=== PATIENT | female | born 1970 | race Caucasian/White ===

== ENCOUNTER 2018-07-19 14:19 | Emergency (ER) | payer MEDICAID ==
[~2018-07-19] VITALS: Ht 165.1 cm; Wt 74.8 kg
[~2018-07-19 14:19] MED LIST: DIPH25CA39 PO; METH4PAK PO; PIME1CRE EX; [UNRECOGNIZED DRUG - CODE] EX
[2018-07-19 15:23] LABS: Urine Bacteria FEW /hpf (None Seen); Urine Blood Negative /uL (Negative); Urine Specific Gravity 1.001 (1.001-1.035); Urine WBC <1 /hpf (0 - 5)
[2018-07-19 15:30] VITALS: BP 102/80
[2018-07-19 15:33] LABS: Basophils # (auto) 0.1 uL; Basophils % (auto) 1.4 % (0.0-2.0); Eosinophils # (auto) 0.4 uL; Hematocrit 39.8 % (36.0-46.0); Hemoglobin 13.2 g/dL (12.2-16.2); Lymphocytes # (auto) 1.7 uL; Lymphocytes % (auto) 19.1 % (10.0-50.0); Mean Corpuscular Hemoglobin 29.1 pg (28.0-32.0); Mean Corpuscular Hgb Conc. 33.2 g/dL (32.0-36.0); Mean Corpuscular Volume 87.7 fL (80.0-100.0); Monocytes # (auto) 0.9 uL; Monocytes % (auto) 10.1 % (0.0-12.0); Neutrophils # (auto) 5.8 uL; Neutrophils % (auto) 65.4 % (37.0-80.0); Platelet Count (auto) 369 10^3/uL (140-450); Red Blood Cells 4.54 10^6/uL (4.0-5.20); Red Cell Distribution Width 14.3 % (11.8-14.3); White Blood Cell 8.8 10^3/uL (4.4-10.8)
[2018-07-19 15:52] LABS: Albumin 3.2 g/dL (3.4-5.0); Calcium 8.3 mg/dL (8.5-10.1)
[2018-07-19 15:55] LABS: BUN/Creatinine Ratio 16.4; Bilirubin, Total 0.5 mg/dL (0.2-1.0)
[2018-07-19] MEDS ORDERED: IBUPROFEN 800 MG TAB PO ONE (16:45)
[2018-07-19] MEDS ORDERED: PANTOPRAZOLE 40 MG TAB PO ONE (17:30)
== END 2018-07-19 17:44 | disposition home or self-care (01) ==
LOC: EDBD 14:19 → ER 14:19
DX: F41.9 Anxiety disorder, unspecified (principal); R51 Headache; E78.5 Hyperlipidemia, unspecified; Z88.8 Allergy status to other drugs, medicaments and biological substances
CPT/HCPCS: 36415; 70450; 80053; 81001; 85025

== ENCOUNTER 2018-08-02 08:22 | Emergency (ER) | payer MEDICAID ==
[~2018-08-02] VITALS: Ht 152.4 cm; Wt 68.9 kg
[2018-08-02 08:45] LABS: Basophils # (auto) 0.1 uL; Eosinophils # (auto) 0.2 uL; Lymphocytes # (auto) 1.5 uL; Lymphocytes % (auto) 21.1 % (10.0-50.0)
[2018-08-02 08:47] LABS: Basophils % (auto) 1.3 % (0.0-2.0); Hematocrit 40.1 % (36.0-46.0); Hemoglobin 13.3 g/dL (12.2-16.2); Mean Corpuscular Hemoglobin 29.4 pg (28.0-32.0); Mean Corpuscular Hgb Conc. 33.2 g/dL (32.0-36.0); Mean Corpuscular Volume 88.6 fL (80.0-100.0); Monocytes # (auto) 0.7 uL; Monocytes % (auto) 10.3 % (0.0-12.0); Neutrophils # (auto) 4.5 uL; Neutrophils % (auto) 64.3 % (37.0-80.0); Nucleated Red Blood Cells % 0.1 %; Platelet Count (auto) 465 10^3/uL (140-450); Red Blood Cells 4.52 10^6/uL (4.0-5.20); Red Cell Distribution Width 14.5 % (11.8-14.3); White Blood Cell 7.1 10^3/uL (4.4-10.8)
[2018-08-02 09:08] LABS: Alanine Aminotransferase 18 U/L (13-56); Albumin 3.6 g/dL (3.4-5.0); Anion Gap 7 (5-15); Aspartate Aminotransferase 16 U/L (15-37); Blood Urea Nitrogen 12 mg/dL (7-18); Calcium 8.9 mg/dL (8.5-10.1); Carbon Dioxide 26 mmol/L (21-32); Chloride 105 mmol/L (98-107); GFR African American 99 mL/min; GFR Non-African American 82 mL/min; Glucose 93 mg/dL (74-106); Potassium 4.5 mmol/L (3.5-5.1); Sodium 138 mmol/L (136-145)
[2018-08-02 09:13] LABS: Alkaline Phosphatase 82 U/L (45-117); Bilirubin, Total 0.5 mg/dL (0.2-1.0); Total Protein 7.8 g/dL (6.4-8.2)
[2018-08-02 09:29] LABS: Urine Bacteria FEW /hpf (None Seen); Urine Blood Negative /uL (Negative); Urine Specific Gravity 1.012 (1.001-1.035); Urine WBC 2 /hpf (0 - 5)
[2018-08-02 11:03] VITALS: BP 110/48
== END 2018-08-02 11:10 | disposition home or self-care (01) ==
LOC: ER 08:22
DX: R07.89 Other chest pain (principal); M79.604 Pain in right leg; E78.5 Hyperlipidemia, unspecified; Z88.8 Allergy status to other drugs, medicaments and biological substances
CPT/HCPCS: 36415; 80053; 81001; 81025; 84484; 85025; 93005; 93970

== ENCOUNTER 2018-08-24 16:16 | Inpatient (IN) | payer MEDICAID ==
[~2018-08-24] VITALS: Ht 152.4 cm; Wt 61.0 kg
--- NOTE | 2018-08-24 11:42 | NUR ---
PT MOVED PT MOVED CLOSER TO NURSING STATION TO ROOM 290A, [facility] CALLED TO REQUEST LOWER RATE TO ALARM FOR SINUS TACH TO 105. Addendum: 08/25/18 at 0005 by JOSE GUADALUPE WALKER RN RN TIME [id number].
[2018-08-24] MEDS ORDERED: SODIUM CHLORIDE 0.9% 1,000 ML IV ONE (18:10)
[2018-08-24] MEDS ORDERED: ASPirin 81 mg TAB PO ONE (18:15)
[2018-08-24] MEDS ORDERED: ENOXAPARIN SOD 60 MG/0.6 ML SYRINGE SC ONE ×2 (18:15)
[2018-08-24 18:32] LABS: Basophils # (auto) 0 uL; Basophils % (auto) 0.7 % (0.0-2.0); Eosinophils # (auto) 0.3 uL; Eosinophils % (auto) 4.3 % (0.0-7.0); Hematocrit 39.5 % (36.0-46.0); Hemoglobin 13.3 g/dL (12.2-16.2); Lymphocytes # (auto) 1.9 uL; Lymphocytes % (auto) 29.3 % (10.0-50.0); Mean Corpuscular Hemoglobin 29.6 pg (28.0-32.0); Mean Corpuscular Hgb Conc. 33.6 g/dL (32.0-36.0); Mean Corpuscular Volume 88.3 fL (80.0-100.0); Monocytes # (auto) 0.7 uL; Monocytes % (auto) 11.3 % (0.0-12.0); Neutrophils # (auto) 3.5 uL; Neutrophils % (auto) 54.4 % (37.0-80.0); Nucleated Red Blood Cells % 0.1 %; Platelet Count (auto) 384 10^3/uL (140-450); Red Blood Cells 4.48 10^6/uL (4.0-5.20); Red Cell Distribution Width 14.2 % (11.8-14.3); White Blood Cell 6.5 10^3/uL (4.4-10.8)
[2018-08-24 18:49] LABS: Albumin 4.2 g/dL (3.4-5.0); Magnesium 2.3 mg/dL (1.6-2.6); Potassium 4.1 mmol/L (3.5-5.1)
[2018-08-24 18:52] LABS: BUN/Creatinine Ratio 12.2; Bilirubin, Total 0.3 mg/dL (0.2-1.0); INR < 0.93 (0.9-1.15); Partial Thromboplastin Time 25.1 sec (23.64-32.05)
[2018-08-24] MEDS ORDERED: IOHEXOL 350 MG/ML 100ML IJ ONE (19:11)
[2018-08-24] MEDS ORDERED: NITROGLYCERIN 0.4 MG SL TAB SL PRN (19:15)
[2018-08-24] MEDS ORDERED: ZOLPIDEM TARTRATE 5 MG TAB PO PRN (19:15)
[2018-08-24] MEDS ORDERED: MORPHINE SULF INJ 2 MG/ML SYRINGE 1ML IV PRN ×2 (19:15)
[2018-08-24] MEDS ORDERED: ONDANSETRON HCL 4 MG/2 ML VIAL IV PRN (19:15)
[2018-08-24] MEDS ORDERED: ACETAMINOPHEN 500 MG TAB PO PRN (19:15)
[2018-08-24 22:00] VITALS: BP 123/78
--- NOTE | 2018-08-24 22:02 | NUR ---
OPENING NOTES RECEIVED PATIENT FROM ED WITH NO SBAR HANDOFF REPORT. PT IS AWAKE AND ORIENTATED X 4 WITH NO S/S OF DISTRESS NOR PAIN. NO S/S OF SOB NOTED. PT'S FAMILY IS AT BEDSIDE. PT CLAIMS "IM WORRIED WHAT HAPPENED DOWNSTAIR WILL HAPPEN TO ME AGAIN." PT WANT FAMILY TO STAY; INFORMED PT ABOUT HOSPITAL POLICY ON FAMILY MEMBERS STAYING. HOB IS 30 DEGREES. BED ALARM IS ON. ADVISED PATIENT TO CALL IF SHE WANT TO GET UP OUT OF BED AND VERBALIZED UNDERSTANDING. DISCUSSED POC WITH PATIENT AND PATIENT VERBALIZED UNDERSTANDING.
[2018-08-24 22:23] LABS: Urine WBC None Seen /hpf (0 - 5)
[2018-08-24 22:36] LABS: Urine Bacteria NONE SEEN /hpf (None Seen); Urine Blood Negative /uL (Negative)
[2018-08-25] MEDS: HYDROcodone-ACET 5/325MG TAB PO PRN (00:33)
[2018-08-25] MEDS ORDERED: ASPI81TA27 PO (01:20)
--- NOTE | 2018-08-25 01:33 | NUR ---
ROUND PT CLAIMS SHE "FEELS BETTER."
--- NOTE | 2018-08-25 01:59 | NUR ---
PT HAS NO DIET, WILL INFORM HOSPITALIST.
--- NOTE | 2018-08-25 04:44 | NUR ---
LEFT UPPER EXTREMITY PT'S LEFT UPPER EXTREMITY SLIGHT SWOLLEN AND WARM TO TOUCH.
--- NOTE | 2018-08-25 05:05 | NUR ---
DIET HOSPITALIST PAGED AGAIN FOR DIET. AWAITING CALL BACK.
[2018-08-25 05:38] VITALS: BP 124/65
--- NOTE | 2018-08-25 07:05 | NUR ---
HOSPITALIST CALLED BACK HOSPITALIST CALLED BACK AND ORDERED A REGULAR DIET.
--- NOTE | 2018-08-25 07:35 | NUR ---
OPENING SHIFT NOTE PATIENT IN BED AWAKE AND ALERT DENIES PAIN AND SOB SHOWING NO S/S OF DISTRESS AT THIS TIME. PATIENT VERBALIZED UNDERSTANDING OF DAYS POC. BED IS IN LOWEST LOCKED POSITION. CALL LIGHT IS WITH IN REACH. WILL CONTINUE TO MONITOR.
--- NOTE | 2018-08-25 07:35 | NUR ---
CLOSING NOTES ENDORSED CARE TO DAY SHIFT NURSELEI.
--- NOTE | 2018-08-25 08:26 | NUR ---
DOCTOR BERNICE SPOKE TO KAY AT DR KING OFFICE. WAITING CALL BACK
[2018-08-25 09:00] VITALS: BP 123/76
--- NOTE | 2018-08-25 09:51 | NUR ---
PAGED DR GOTTI PAGED. SPOKE TO ODILIA. AWAITING RESPONSE
[2018-08-25] MEDS ORDERED: ENOXAPARIN SOD 60 MG/0.6 ML SYRINGE SC SCH (10:00)
--- NOTE | 2018-08-25 10:15 | NUR ---
AT BEDSIDE DR AN AT BEDSIDE. ORDERED XERALTO TO BE GIVEN. WILL CARRY OUT ORDERS ACCORDINGLY
--- NOTE | 2018-08-25 10:30 | NUR ---
PAGED PAGED DR MELLO PER DR OSUNA REQUEST. SPOKE TO RAFIA. AWAITING RESPONSE
[2018-08-25] MEDS ORDERED: RIVAROXABAN 15 MG TAB PO ONE (12:00)
--- NOTE | 2018-08-25 12:27 | NUR ---
[facility] CALLED SAID LOVENOX AND XERALTO CANNOT BE TAKEN TOGETHER. [facility] WILL CONTINUE TO MONITOR.
[2018-08-25 13:00] VITALS: BP 144/74
--- NOTE | 2018-08-25 14:56 | NUR ---
BERNICE HARRIS SPOKE TO JENNY FROM DR KIGN OFFICE, SHE VERBALIZED IS GOING TO MAKE HIS ROUNDS. WILL CONTINUE TO MONITOR
[2018-08-25 17:00] VITALS: BP 124/74
[2018-08-25] MEDS ORDERED: WARFARIN SODIUM 5 MG TAB PO ONE (17:00)
[2018-08-25] MEDS ORDERED: RIVAROXABAN 15 MG TAB PO SCH (18:00)
[2018-08-25] MEDS: RIVAROXABAN 20 MG TAB PO SCH (18:53)
--- NOTE | 2018-08-25 19:08 | NUR ---
END OF SHIFT NOTE PATIENT SITTING UP IN A CHAIR WITH FRIEND AT BEDSIDE. DENIES PAIN SOB OR ANY DISTRESS. CALL LIGHT IS WITHIN REACH. ENDORSING CARE TO NOC RN
--- NOTE | 2018-08-25 19:31 | NUR ---
OPENING NOTES RECEIVED REPORT FROM DAY SHIFT NURSE, LEI. PT IS AWAKE AND ORIENTATED X 4 WITH NO S/S OF DISTRESS NOR PAIN. NO S/S OF SOB NOTED. FRIEND IS AT BEDSIDE. PT IS MORE CALM AND RELAXED THAN LAST NIGHT. PT IS NOW ON ANTICOAGULATION THERAPY. HOB IS 30 DEGREES. BED ALARM IS ON. ADVISED PATIENT TO CALL IF SHE WANT TO GET UP OUT OF BED AND VERBALIZED UNDERSTANDING. DISCUSSED POC WITH PATIENT AND PATIENT VERBALIZED UNDERSTANDING.
[2018-08-25 21:30] VITALS: BP 127/74
--- NOTE | 2018-08-25 23:13 | NUR ---
ROUND PT IS SLEEPING, WITNESSED CHEST RISING AND FALLING.
[2018-08-26] VITALS (8 sets, daily range): BP systolic 99–164; BP diastolic 56–103
--- NOTE | 2018-08-26 07:27 | NUR ---
CLOSING NOTES ENDORSED CARE TO DAY SHIFT NURSELEI.
--- NOTE | 2018-08-26 07:45 | NUR ---
OPENING SHIFT NOTE PATIENT IS SITTING UP IN BED DENYING ANY SOB OR DISTRESS AT THIS TIME. PATIENT VERBALIZED UNDERSTANDING OF DAYS POC. ANSWERED ALL QUESTIONS AND CONCERNS OF PATIENT. BED IS IN LOWEST LOCKED POSITION CALL LIGHT IS WITH IN REACH WILL CONTINUE TO MONITOR.
--- NOTE | 2018-08-26 09:01 | NUR ---
PAGED PAGED DR PUCKETT. DR PUCKETT GAVE TELEPHONE ORDER FOR AN MRI WITHOUT CONTRAST. REBACK TO VERIFY ORDER. WILL CARRY OUT ORDERS
--- NOTE | 2018-08-26 09:45 | NUR ---
PATIENT AMBULATING DR AN VERBALIZED PATIENT SHOULD AMBULATE. PATIENT AMBULATING UP AND DOWN THE [address] WITH A STEADY GAIT. WILL CONTINUE TO MONITOR
--- NOTE | 2018-08-26 10:33 | NUR ---
ORTHOSTATIC BP DR AN ORDERED FOR ORTHOSTATIC BP TO BE ADMINISTERED X3. FIRST SET OF VITALS DONE. SEE VITAL SIGNS SPREAD SHEET
--- NOTE | 2018-08-26 19:00 | NUR ---
END OF SHIFT NOTE PATIENT IS AMBULATING IN [place] WITH A STEADY GAIT. SHOWING NO S/S OF DISTRESS OR SOB AT THIS TIME. ENDORSED CARE TO NOC RN
[2018-08-26] MEDS: RIVAROXABAN 20 MG TAB PO SCH (19:11)
--- NOTE | 2018-08-26 21:07 | NUR ---
IV insertion IV access obtained, via clean sterile technique by inserting 22 gauge catheter at RIGHT FOREARM after 1 attempt(s). IV secured properly. No trauma to site. Patient tolerated well. IV removal IV DC'd with clean sterile technique, catheter fully intact. Pressure dressing applied to site. Patient tolerated well. NOTE: OLD IV HURTING
--- NOTE | 2018-08-26 22:05 | NUR ---
PT COMPLAINING OF SWELLING NEAR THE RIGHT WRIST AFTER THE SALES COACH HAD DONE HER BLOOD PRESSURE ON THAT ARM. UNABLE TO DO THE BLOOD PRESSURE ON THE LEFT ARM BECAUSE OF BLOOD CLOT. PT REFUSING TO HAVE ORTHO VITALS DONE. PAGED DR. AN. AWAITING CALL BACK.
--- NOTE | 2018-08-26 22:15 | NUR ---
TALKED TO DR. AN. NEW ORDERS FOR RIGHT ARM US R/O DVT. XRAY OF RIGHT ARM. APPLIED HEAT PER WILL CONTINUE TO MONITOR.
[2018-08-26] MEDS: HYDROcodone-ACET 5/325MG TAB PO PRN (22:41)
--- NOTE | 2018-08-27 04:32 | NUR ---
PT REFUSING TO HAVE THE BLOOD PRESSURE TAKEN ON HER ARM. BP TAKEN ON LEFT CALF. WAS AT 140/74
[2018-08-27 05:00] VITALS: BP 140/74
[2018-08-27 05:01] VITALS: BP 144/86
[2018-08-27 05:02] VITALS: BP 167/92
[2018-08-27 06:32] LABS: Basophils # (auto) 0.1 uL; Basophils % (auto) 0.8 % (0.0-2.0); Eosinophils # (auto) 0.4 uL; Eosinophils % (auto) 4.8 % (0.0-7.0); Hematocrit 37.8 % (36.0-46.0); Hemoglobin 12.8 g/dL (12.2-16.2); Lymphocytes # (auto) 2.4 uL; Lymphocytes % (auto) 32.2 % (10.0-50.0); Mean Corpuscular Hemoglobin 29.5 pg (28.0-32.0); Mean Corpuscular Hgb Conc. 33.9 g/dL (32.0-36.0); Mean Corpuscular Volume 86.9 fL (80.0-100.0); Monocytes # (auto) 0.6 uL; Monocytes % (auto) 8.3 % (0.0-12.0); Neutrophils % (auto) 53.9 % (37.0-80.0); Platelet Count (auto) 386 10^3/uL (140-450); Red Blood Cells 4.35 10^6/uL (4.0-5.20); Red Cell Distribution Width 14.2 % (11.8-14.3); White Blood Cell 7.4 10^3/uL (4.4-10.8)
[2018-08-27 06:50] LABS: Albumin 3.7 g/dL (3.4-5.0); Calcium 8.7 mg/dL (8.5-10.1); Potassium 3.6 mmol/L (3.5-5.1)
[2018-08-27 06:55] LABS: BUN/Creatinine Ratio 16.9; Bilirubin, Total 0.4 mg/dL (0.2-1.0); Total Protein 7.6 g/dL (6.4-8.2)
[2018-08-27 09:00] VITALS: BP 125/63
[2018-08-27 09:24] VITALS: BP 125/63
--- NOTE | 2018-08-27 10:07 | NUR ---
Discharge instructions given as ordered. Encourage to follow up with PMD as instructed. All questions and concerns addressed. Patient verbalized understanding. Medication reconciliation form completed and copy given to patient. IV removed with catheter intact, pressure dressing applied. Telemetry unit returned to [facility]. Patient taken to vehicle via wheelchair with all personal belongings, accompanied by staff and family member. No distress noted at time of departure.
[2018-09-15] MEDS ORDERED: RIVAROXABAN 20 MG TAB PO SCH (18:00)
== END 2018-08-27 10:22 | disposition home or self-care (01) | DRG 197 ==
LOC: ER 16:22 → TELE 18:14 → TELE-WESTW 21:45
PROVIDERS: ADMIT Nurse Practitioner Acute Care; ATTEND Internal Medicine
DX: I82.612 Acute embolism and thrombosis of superficial veins of left upper extremity (principal); E03.9 Hypothyroidism, unspecified; I82.622 Acute embolism and thrombosis of deep veins of left upper extremity; E78.5 Hyperlipidemia, unspecified; F41.9 Anxiety disorder, unspecified; F10.129 Alcohol abuse with intoxication, unspecified; Z79.01 Long term (current) use of anticoagulants; Z82.3 Family history of stroke; Z82.49 Family history of ischemic heart disease and other diseases of the circulatory system; Z86.718 Personal history of other venous thrombosis and embolism; Z88.8 Allergy status to other drugs, medicaments and biological substances; Z90.49 Acquired absence of other specified parts of digestive tract; Z79.899 Other long term (current) drug therapy; Y90.9 Presence of alcohol in blood, level not specified
CPT/HCPCS: 36415; 70450; 70551; 71275; 73090; 80053; 81001; 81241; 83735; 84443; 85025; 85379; 85610; 85730; 93005; 93971; 94761; 96360; G0378

== ENCOUNTER 2018-10-17 05:18 | Emergency (ER) | payer MEDICAID ==
[~2018-10-17] VITALS: Ht 152.4 cm; Wt 68.0 kg
[~2018-10-17 05:18] MED LIST changes: +ASPI-404 PO; -METH4PAK PO; -PIME1CRE EX; -[UNRECOGNIZED DRUG - CODE] EX
[2018-10-17 07:30] VITALS: BP 122/61
[2018-10-17] MEDS: ASPirin 81 mg TAB PO ONE ×2 (07:45→08:51)
[2018-10-17 07:47] LABS: Basophils # (auto) 0.2 uL; Basophils % (auto) 2.9 % (0.0-2.0); Eosinophils # (auto) 0.3 uL; Eosinophils % (auto) 4.2 % (0.0-7.0); Hematocrit 31.9 % (36.0-46.0); Hemoglobin 10.4 g/dL (12.2-16.2); Mean Corpuscular Hemoglobin 27.1 pg (28.0-32.0); Mean Corpuscular Hgb Conc. 32.8 g/dL (32.0-36.0); Mean Corpuscular Volume 82.8 fL (80.0-100.0); Monocytes # (auto) 0.6 uL; Monocytes % (auto) 9.3 % (0.0-12.0); Neutrophils # (auto) 3.6 uL; Neutrophils % (auto) 53.6 % (37.0-80.0); Platelet Count (auto) 401 10^3/uL (140-450); Red Blood Cells 3.85 10^6/uL (4.0-5.20); Red Cell Distribution Width 13.5 % (11.8-14.3); White Blood Cell 6.7 10^3/uL (4.4-10.8)
[2018-10-17 08:11] LABS: Alanine Aminotransferase 14 U/L (13-56); Albumin 3.4 g/dL (3.4-5.0); Anion Gap 8 (5-15); Aspartate Aminotransferase 14 U/L (15-37); BUN/Creatinine Ratio 26.6; Blood Urea Nitrogen 17 mg/dL (7-18); Calcium 8.4 mg/dL (8.5-10.1); Carbon Dioxide 24 mmol/L (21-32); Chloride 106 mmol/L (98-107); GFR African American 128 mL/min; GFR Non-African American 106 mL/min; Glucose 86 mg/dL (74-106); Magnesium 1.9 mg/dL (1.6-2.6); Potassium 4.2 mmol/L (3.5-5.1); Sodium 138 mmol/L (136-145)
[2018-10-17 08:16] LABS: Alkaline Phosphatase 79 U/L (45-117); Bilirubin, Total 0.3 mg/dL (0.2-1.0)
== END 2018-10-17 10:07 | disposition home or self-care (01) ==
LOC: ER 05:18
DX: R07.89 Other chest pain (principal); R11.2 Nausea with vomiting, unspecified; R42 Dizziness and giddiness; E78.5 Hyperlipidemia, unspecified; Z79.82 Long term (current) use of aspirin; Z86.711 Personal history of pulmonary embolism; Z88.8 Allergy status to other drugs, medicaments and biological substances
CPT/HCPCS: 36415; 71045; 80053; 83735; 83880; 84484; 85025; 93005

== ENCOUNTER 2018-12-14 16:31 | Inpatient (IN) | payer MEDICAID ==
[~2018-12-14] VITALS: Ht 152.4 cm; Wt 70.9 kg
[2018-12-14 12:30] VITALS: BP 142/74
[2018-12-14] MEDS ORDERED: IOHEXOL 350 MG/ML 100ML IJ ONE (19:12)
[2018-12-14 19:20] LABS: Basophils # (auto) 0.1 uL; Eosinophils # (auto) 0.3 uL; Mean Corpuscular Hgb Conc. 32.7 g/dL (32.0-36.0); Monocytes # (auto) 0.6 uL
[2018-12-14 19:23] LABS: Basophils % (auto) 1.6 % (0.0-2.0); Eosinophils % (auto) 3.5 % (0.0-7.0); Hematocrit 35.1 % (36.0-46.0); Hemoglobin 11.5 g/dL (12.2-16.2); Lymphocytes % (auto) 25.6 % (10.0-50.0); Mean Corpuscular Hemoglobin 26.1 pg (28.0-32.0); Mean Corpuscular Volume 79.9 fL (80.0-100.0); Monocytes % (auto) 7.8 % (0.0-12.0); Neutrophils # (auto) 4.8 uL; Neutrophils % (auto) 61.5 % (37.0-80.0); Nucleated Red Blood Cells % 0.1 %; Platelet Count (auto) 356 10^3/uL (140-450); Red Cell Distribution Width 17.3 % (11.8-14.3); White Blood Cell 7.7 10^3/uL (4.4-10.8)
[2018-12-14 19:36] LABS: Albumin 3.7 g/dL (3.4-5.0); Calcium 9.3 mg/dL (8.5-10.1); Potassium 4.3 mmol/L (3.5-5.1)
[2018-12-14 19:40] LABS: BUN/Creatinine Ratio 15.9; Bilirubin, Total 0.4 mg/dL (0.2-1.0); Total Protein 7.9 g/dL (6.4-8.2)
[2018-12-14 19:49] LABS: INR 0.96 (0.9-1.15); Partial Thromboplastin Time 24.2 sec (23.64-32.05)
[2018-12-14 20:30] LABS: Urine WBC None Seen /hpf (0 - 5)
[2018-12-14 21:04] LABS: Urine Bacteria NONE SEEN /hpf (None Seen); Urine Blood Negative /uL (Negative); Urine Specific Gravity 1.007 (1.001-1.035)
[2018-12-14] MEDS ORDERED: HYDROcodone-ACET 5/325MG TAB PO PRN (22:15)
[2018-12-14] MEDS ORDERED: ONDANSETRON HCL 4 MG/2 ML VIAL IV PRN (22:15)
--- NOTE | 2018-12-14 22:45 | NUR ---
MS admit from ER DANITZA HAYWOOD admitted to tele/MS after SBAR received. Patient oriented to Susana Rowley, primary RN, unit, room, bed, and unit policies regarding patient care and visiting hours. Patient weighed by bedscale and encouraged to call if they need something. All questions and concerns addressed, patient verbalized understanding. Note:
[2018-12-14] MEDS ORDERED: RIVA10TA PO (23:44)
[2018-12-15 05:48] VITALS: BP 129/71
--- NOTE | 2018-12-15 07:40 | NUR ---
Opening Shift Note Assumed care of patient, awake and alert. No S/S of distress/SOB or pain. InsTructed on POC and to call for assist PRN, will continue to monitor for changes Q1hr and PRN.
[2018-12-15 09:00] VITALS: BP 126/79
[2018-12-15 13:00] VITALS: BP 127/62
--- NOTE | 2018-12-15 16:00 | NUR ---
PER PATIENT "DOCTOR MARC WANTS TO BE CONSULTED FOR CARDIOLOGY"
[2018-12-15 16:59] VITALS: BP 114/75
[2018-12-15] MEDS ORDERED: RIVAROXABAN 20 MG TAB PO SCH (18:00)
--- NOTE | 2018-12-15 19:00 | NUR ---
OPENING NOTE Received report from day shift RN. Patient is A&O X's 4 with no s/s of distress noted. Patient has family at bedside. Educated patient on POC and to use call light when in need of assistance Patient verbalized understanding. Bed is in lowest/locked position with side rails up X's 2 and call light is within reach of patient. Will continue care.
[2018-12-15 22:00] VITALS: BP 117/73
[2018-12-16 05:00] VITALS: BP 110/62
--- NOTE | 2018-12-16 05:27 | NUR ---
PATIENT C/O DIZZINESS Patient c/o nausea and reported that she vomited a little bit in the bathroom. She stated that she felt dizzy so she pulled the cord for help and MANAGER RESIDENTIAL was already right there at the moment to help. She stated that she almost fell but she caught herself and held onto the sink for support. Educated patient to use call light before ambulating so that we can help her. Patient verbalized understanding. She reported that she had these side effects with Xarelto before. Vital signs are BP: 110/62 HR 70 RR: 16 O2 95% on room air . Offered patient nausea medication. Patient refused, saying she is scared to take any other medication. Will continue care
--- NOTE | 2018-12-16 07:35 | NUR ---
Opening Shift Note Assumed care of patient, awake and alert. No S/S of distress/SOB or pain. Instructed on POC and to call for assist PRN, will continue to monitor for changes Q1hr and PRN.
[2018-12-16 08:00] VITALS: BP 122/59
[2018-12-16 09:00] VITALS: BP 122/59
[2018-12-16 13:00] VITALS: BP 114/70
--- NOTE | 2018-12-16 13:15 | NUR ---
Spoke with Doctor Estrellita, Patient to be D/C home with prescribed for Xarelto 20mg to be taken daily.
--- NOTE | 2018-12-16 13:35 | NUR ---
Called in prescription to patients preferred pharmacy, [facility] [phone]. Spoke with Oscar took order for Xarelto 20 mg daily PO x 30days.
--- NOTE | 2018-12-16 14:01 | NUR ---
Discharge instructions given as ordered. Encourage to follow up with PMD as instructed. All questions and concerns addressed. Patient verbalized understanding.No home medications held in Pharmacy and none returned to patient, and no needed vaccines given. IV removed with catheter intact, pressure dressing applied. Patient refused wheelchair and staff assistance.Patient ambulated to elevator with steady gait with all personal belongings, accompanied by staff. No distress noted at time of departure.
== END 2018-12-16 14:01 | disposition home or self-care (01) | DRG 197 ==
LOC: ER 16:31 → OVERFLOW 16:32 → CENTRAL 23:36
PROVIDERS: ADMIT Internal Medicine; ATTEND Internal Medicine
DX: I82.C11 Acute embolism and thrombosis of right internal jugular vein (principal); D50.9 Iron deficiency anemia, unspecified; E78.5 Hyperlipidemia, unspecified; N92.0 Excessive and frequent menstruation with regular cycle; Z90.49 Acquired absence of other specified parts of digestive tract; Z88.8 Allergy status to other drugs, medicaments and biological substances; Z79.01 Long term (current) use of anticoagulants
CPT/HCPCS: 36415; 71275; 80053; 81001; 85025; 85610; 85730; 93970; G0378

== ENCOUNTER 2019-01-29 16:43 | Emergency (ER) | payer MEDICAID ==
[~2019-01-29] VITALS: Ht 152.4 cm; Wt 72.6 kg
[~2019-01-29 16:43] MED LIST changes: +RIVA10TA PO
[2019-01-29 17:10] VITALS: BP 116/60
== END 2019-01-29 18:16 | disposition home or self-care (01) ==
LOC: ER 17:04
DX: M79.605 Pain in left leg (principal); E78.00 Pure hypercholesterolemia, unspecified; Z90.49 Acquired absence of other specified parts of digestive tract; Z88.8 Allergy status to other drugs, medicaments and biological substances; Z79.82 Long term (current) use of aspirin; Z79.899 Other long term (current) drug therapy
CPT/HCPCS: 93971

== ENCOUNTER 2019-11-03 13:49 | Emergency (ER) | payer MEDICAID ==
[~2019-11-03] VITALS: Ht 154.9 cm; Wt 77.1 kg
[~2019-11-03 13:49] MED LIST changes: -ASPI-404 PO; +ASPI-543 PO
[2019-11-03 16:24] VITALS: BP 122/57
== END 2019-11-03 16:26 | disposition home or self-care (01) ==
LOC: ER 13:49
DX: G45.9 Transient cerebral ischemic attack, unspecified (principal)
CPT/HCPCS: 70450